=== PATIENT | female | born 1960 | race American Indian/Alaskan Native ===

== ENCOUNTER 2017-01-19 18:00 | Emergency (ER) | payer OTHER ==
[2017-01-19 18:52] LABS: Basophils % (Auto) 0.5 % (0.0-1.8); Eosinophils % (Auto) 4.3 % (0.0-4.3); Hematocrit 42.5 % (30.3-42.9); Hemoglobin 14.4 gm/dl (10.1-14.3); Mean Corpuscular HGB Conc 34 % (30-34); Mean Corpuscular Hemoglobin 31 pg (28-32); Mean Corpuscular Volume 92 fl (79-97); Platelet Count 218 K/mm3 (140-440); Red Blood Count 4.62 M/mm3 (3.65-5.03); Red Cell Distribution Width 13.7 % (13.2-15.2)
[2017-01-19 19:14] LABS: Anion Gap 19 mmol/L; BUN/Creatinine Ratio 17; Blood Urea Nitrogen 12 mg/dL (7-17); Carbon Dioxide 27 mmol/L (22-30); Chloride 98.9 mmol/L (98-107); Glucose 99 mg/dL (65-100); Potassium 4.3 mmol/L (3.6-5.0); Sodium 141 mmol/L (137-145)
--- NOTE | 2017-01-19 19:42 | XRay Report ---
FINAL REPORT PROCEDURE: XR FOOT 3+V RT TECHNIQUE: Three-view right foot HISTORY: Injury to right foot COMPARISON: No prior studies are available for comparison. FINDINGS: Soft tissue swelling right foot. Comminuted fracturing about the proximal 1st metatarsal. Comminuted fracturing of the proximal and distal 2nd metatarsal as well as distal 3rd 4th and 5th metatarsals. Consider followup CT scan or MRI to further evaluate IMPRESSION: Extensive fracturing of the 1st through 5th metatarsals
[2017-01-20] MEDS ORDERED: PERCOCET 5/325 PO ONE ×2 (06:28→08:24)
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
--- NOTE | 2017-01-20 06:59 | XRay Report ---
FINAL REPORT EXAM: XR CHEST ROUTINE 2V HISTORY: cp TECHNIQUE: PA and lateral views of the chest were submitted. FINDINGS: The lungs are hyper inflated. There are no acute infiltrates or effusions. The heart size is normal. The lungs are not congested. The skeletal structures are well-maintained. IMPRESSION: COPD. No acute process in the chest.
[2017-01-20 07:06] LABS: Alanine Aminotransferase 13 units/L (7-56); Albumin 3.9 g/dL (3.9-5); Albumin/Globulin Ratio 1.1 %; Alkaline Phosphatase 58 units/L (35-129); Total Protein 7.5 g/dL (6.3-8.2)
[2017-01-20 07:10] LABS: Bilirubin,Direct < 0.2 mg/dL (0-0.2)
[2017-01-20 08:31] VITALS: BP 137/81
--- NOTE | 2017-01-20 08:46 | Cat Scan Report ---
FINAL REPORT EXAM: CT LOWER EXTREMITY RT WO CON HISTORY: right foot fractures TECHNIQUE: CT of the right foot performed. Axial images and coronal and sagittal reformatted images were obtained. PRIORS: None. FINDINGS: There are fractures involving proximal aspects of 1st, 2nd metatarsals. The 1st metatarsal fracture involves the tarsal-metatarsal joint. There is minimal medial displacement. Second metatarsal fracture involves the proximal shaft of the metatarsal. There is no apparent involvement of the tarsal-metatarsal joint. Fracture is minimally displaced laterally. In addition, there are fractures involving distal 2nd, 3rd, 4th and 5th metatarsal necks. There is medial displacement especially of the 2nd and 3rd metatarsal necks. 2nd, 3rd metatarsal neck fractures are mildly comminuted. The tarsal bones appear intact. There is soft tissue swelling especially dorsally. IMPRESSION: Mildly displaced fractures involving proximal 1st and 2nd metatarsals. There are also displaced fractures of 2nd through 5th metatarsal necks. Findings are specifically described above.
== END 2017-01-20 10:15 | disposition home or self-care (01) ==
LOC: ED 18:00
DX: B35.4 Tinea corporis (principal); M94.0 Chondrocostal junction syndrome [Tietze]; S92.321A Displaced fracture of second metatarsal bone, right foot, initial encounter for closed fracture; S92.311A Displaced fracture of first metatarsal bone, right foot, initial encounter for closed fracture; S92.331A Displaced fracture of third metatarsal bone, right foot, initial encounter for closed fracture; S92.341A Displaced fracture of fourth metatarsal bone, right foot, initial encounter for closed fracture; B35.3 Tinea pedis; S92.351A Displaced fracture of fifth metatarsal bone, right foot, initial encounter for closed fracture; F17.200 Nicotine dependence, unspecified, uncomplicated; V89.2XXA Person injured in unspecified motor-vehicle accident, traffic, initial encounter; Y93.89 Activity, other specified; Y92.89 Other specified places as the place of occurrence of the external cause; Y99.8 Other external cause status
CPT/HCPCS: 36415; 71020; 80048; 80074; 84484; 85025; 93005; 93010; 99285

== ENCOUNTER 2017-07-27 18:22 | Emergency (ER) | payer SELFPAY ==
[2017-07-27 18:50] VITALS: BP 127/82
[2017-07-27 19:10] LABS: Basophils % (Auto) 0.4 % (0.0-1.8); Eosinophils % (Auto) 0.7 % (0.0-4.3); Hematocrit 54.8 % (30.3-42.9); Hemoglobin 18.3 gm/dl (10.1-14.3); Lymphocytes # (Auto) 1.9 K/mm3 (1.2-5.4); Lymphocytes % (Auto) 34.8 % (13.4-35.0); Mean Corpuscular HGB Conc 33 % (30-34); Mean Corpuscular Hemoglobin 31 pg (28-32); Mean Corpuscular Volume 94 fl (79-97); Monocytes # (Auto) 0.6 K/mm3 (0.0-0.8); Monocytes % (Auto) 11.7 % (0.0-7.3); Platelet Count 244 K/mm3 (140-440); Red Blood Count 5.86 M/mm3 (3.65-5.03); Red Cell Distribution Width 14.1 % (13.2-15.2)
[2017-07-27 19:34] LABS: Alanine Aminotransferase 21 units/L (7-56); Albumin 4.8 g/dL (3.9-5); BUN/Creatinine Ratio 20; Blood Urea Nitrogen 16 mg/dL (7-17); Calcium 10.2 mg/dL (8.4-10.2); Hemolysis Index 17; Lipase 32 units/L (13-60)
== END 2017-07-27 19:58 | disposition left against medical advice (07) ==
LOC: ED 18:22
DX: R11.10 Vomiting, unspecified (principal); Z53.21 Procedure and treatment not carried out due to patient leaving prior to being seen by health care provider
CPT/HCPCS: 36415; 80053; 83690; 85025